=== PATIENT | female | born 1990 | race American Indian/Alaskan Native ===

== ENCOUNTER 2018-08-04 18:47 | Emergency (ER) | payer OTHER ==
--- NOTE | 2018-08-04 19:22 | Emergency Department Report ---
Chief Complaint: Vaginal Bleeding Stated Complaint: POSS MISCARRIAGE Time Seen by Provider: 08/04/18 19:19 - HPI History of Present Illness: pt took two at home test started spotting and now having heavy vaginal bleeding now passing clots 4-5 tampons today suprapubic cramping no fever, no urinary sx LNMP 06/28/18 /P:1/A:0 MSE screening note: Focused history and physical exam performed. Due to findings the following was ordered: UA, labs ED Disposition for MSE Condition: Stable
[2018-08-04 20:19] LABS: Basophils % (Auto) 0.2 % (0.0-1.8); Eosinophils # (Auto) 0.1 K/mm3 (0.0-0.4); Eosinophils % (Auto) 1.2 % (0.0-4.3); Hematocrit 37.7 % (30.3-42.9); Hemoglobin 12.1 gm/dl (10.1-14.3); Lymphocytes # (Auto) 2.1 K/mm3 (1.2-5.4); Lymphocytes % (Auto) 23.7 % (13.4-35.0); Mean Corpuscular HGB Conc 32 % (30-34); Mean Corpuscular Volume 74 fl (79-97); Monocytes # (Auto) 0.7 K/mm3 (0.0-0.8); Monocytes % (Auto) 7.5 % (0.0-7.3); Platelet Count 263 K/mm3 (140-440); Red Blood Count 5.08 M/mm3 (3.65-5.03); Red Cell Distribution Width 16.9 % (13.2-15.2)
[2018-08-04 20:24] LABS: Bacteria,Urine 1+ /HPF (Negative); Bilirubin,Urine NEG (Negative); Blood,Urine LG (Negative); Color,Urine Red (Yellow); Mucus,Urine 3+ /HPF; Urobilinogen,Urine < 2.0 mg/dL (<2.0)
[2018-08-04 20:28] LABS: RBC,Urine > 182.0 /HPF (0.0-6.0)
--- NOTE | 2018-08-05 01:36 | Ultrasound Report ---
PROCEDURE: US OB <= 14 WEEKS FETUS TECHNIQUE: Real-time transabdominal sonography of the uterus, placenta, amniotic fluid, adnexa, and fetus was performed with image documentation. Measurements were obtained to determine age/size. M-mode Doppler was used to document heartbeat. ADDITIONAL GESTATION: None. HISTORY: vag bleeding, low hcg COMPARISONS: None . FINDINGS: No intrauterine is identified. The uterus measures 10.2 x 5.1 x 6.4 cm. Endometrium is thic kened at 10.9 mm. There is no endometrial fluid. Right ovary measures 3 x 2 x 2.8 cm. There are multi ple cystic follicles measuring up to 18 mm. Left ovary measures 2.6 x 1.2 x 2.2 cm. There is a 1 cm c ystic follicle. There is no free pelvic fluid. There is no evidence of ovarian torsion. IMPRESSION: No intrauterine or ectopic is identified. This document is electronically signed by Luigi Lam MD., August 05 2018 01:34:10 AM [facility]
--- NOTE | 2018-08-05 01:37 | Ultrasound Report ---
PROCEDURE: US OB TRANSVAGINAL TECHNIQUE: Real-time transvaginal sonography of the uterus, placenta, amniotic fluid, adnexa, and fe tus was performed with image documentation. Measurements were obtained to determine age/size. M -mode Doppler was used to document heartbeat. ADDITIONAL GESTATION: None. HISTORY: vag bleeding, low hcg COMPARISONS: None . FINDINGS: No intrauterine is identified. The uterus measures 10.2 x 5.1 x 6.4 cm. Endometrium is thic kened at 10.9 mm. There is no endometrial fluid. Right ovary measures 3 x 2 x 2.8 cm. There are multi ple cystic follicles measuring up to 18 mm. Left ovary measures 2.6 x 1.2 x 2.2 cm. There is a 1 cm c ystic follicle. There is no free pelvic fluid. There is no evidence of ovarian torsion. IMPRESSION: No intrauterine or ectopic is identified. This document is electronically signed by Luigi Lam MD., August 05 2018 01:35:04 AM [facility]
--- NOTE | 2018-08-05 02:31 | Emergency Department Report ---
ED Female HPI - General Chief complaint: Vaginal Bleeding Stated complaint: POSS MISCARRIAGE Time Seen by Provider: 08/04/18 19:19 Source: patient Mode of arrival: Ambulatory Limitations: No Limitations - History of Present Illness Initial comments: pt took two at home test started spotting and now having heavy vaginal bleeding now passing clots 4-5 tampons today suprapubic cramping no fever, no urinary sx LNMP 06/28/18/P:1/A:0 Complaint: vaginal bleeding Onset/Timin -: days(s) Severity: moderate Severity scale (0 -10): 5 Quality: cramping Consistency: constant Improves with: none Worsens with: none Are you Now?: Yes Last Menstrual Period: 06/28/18 EDC: 04/04/19 Associated Symptoms: vaginal bleeding - Related Data Sexually active: Yes : 3 Para: 1 A: 1 Previous Rx's Medication Instructions Recorded Last Taken Type cephALEXin [Keflex] 500 mg PO Q12HR 10 Days #20 cap 08/05/18 Unknown Rx traMADol [Ultram] 50 mg PO Q6HR PRN #12 tablet 08/05/18 Unknown Rx Allergies Allergy/AdvReac Type Severity Reaction Status Date / Time No Known Allergies Allergy Unverified 08/04/18 18:49 ED Review of Systems ROS: Stated complaint: POSS MISCARRIAGE Other details as noted in HPI Constitutional: denies: chills, fever Eyes: denies: eye pain, eye discharge, vision change ENT: denies: ear pain, throat pain Respiratory: denies: cough, shortness of breath, wheezing Cardiovascular: denies: chest pain, palpitations Endocrine: no symptoms reported Gastrointestinal: denies: abdominal pain, nausea, diarrhea Genitourinary: denies: urgency, dysuria, discharge Musculoskeletal: denies: back pain, joint swelling, arthralgia Skin: denies: rash, lesions Neurological: denies: headache, weakness, paresthesias Psychiatric: denies: anxiety, depression Hematological/Lymphatic: denies: easy bleeding, easy bruising ED Past Medical Hx - Past Medical History Previous Medical History?: No - Surgical History Past Surgical History?: No - Social History Smoking Status: Never Smoker Substance Use Type: None - Medications Home Medications: Home Medications Medication Instructions Recorded Confirmed Last Taken Type cephALEXin [Keflex] 500 mg PO Q12HR 10 Days #20 cap 08/05/18 Unknown Rx traMADol [Ultram] 50 mg PO Q6HR PRN #12 tablet 08/05/18 Unknown Rx ED Physical Exam - General Limitations: No Limitations General appearance: alert, in no apparent distress - Head Head exam: Present: atraumatic, normocephalic - Eye Eye exam: Present: normal appearance - ENT ENT exam: Present: mucous membranes moist - Neck Neck exam: Present: normal inspection - Respiratory Respiratory exam: Present: normal lung sounds bilaterally. Absent: respiratory distress, wheezes, stridor, chest wall tenderness - Cardiovascular Cardiovascular Exam: Present: regular rate, normal rhythm, normal heart sounds. Absent: systolic murmur, diastolic murmur, rubs, gallop - GI/Abdominal GI/Abdominal exam: Present: soft, normal bowel sounds. Absent: tenderness, rebound, bruit, hernia - Rectal Rectal exam: Present: deferred - Extremities Exam Extremities exam: Present: normal inspection - Back Exam Back exam: Present: normal inspection, full ROM. Absent: tenderness, CVA tenderness (R), CVA tenderness (L), rash noted - Neurological Exam Neurological exam: Present: alert, oriented X3, CN II-XII intact, normal gait - Psychiatric Psychiatric exam: Present: normal affect, normal mood - Skin Skin exam: Present: warm, dry, intact, normal color. Absent: rash ED Course Vital Signs 08/04/18 19:24 Temperature 98.1 F Pulse Rate 85 Respiratory 16 Rate Blood Pressure 111/63 O2 Sat by Pulse 97 Oximetry ED Medical Decision Making - Lab Data Result diagrams: 08/04/18 19:33 Laboratory Results - last 72 hr 08/04/18 08/04/18 08/04/18 19:33 19:33 19:33 WBC 8.7 RBC 5.08 H Hgb 12.1 Hct 37.7 MCV 74 L MCH 24 L MCHC 32 RDW 16.9 H Plt Count 263 Lymph % (Auto) 23.7 Spink % (Auto) 7.5 H Eos % (Auto) 1.2 Baso % (Auto) 0.2 Lymph # 2.1 Spink # 0.7 Eos # 0.1 Baso # 0.0 Seg Neutrophils % 67.4 Seg Neutrophils # 5.9 HCG, Quant 27.47 H Urine Color Urine Turbidity Urine pH Ur Specific [place] Urine Protein Urine Glucose (UA) Urine Ketones Urine Blood Urine Nitrite Urine Bilirubin Urine Urobilinogen Ur Leukocyte Esterase Urine WBC (Auto) Urine RBC (Auto) U Epithel Cells (Auto) Urine Bacteria (Auto) Urine Mucus Blood Type AB POSITIVE 08/04/18 19:42 WBC RBC Hgb Hct MCV MCH MCHC RDW Plt Count Lymph % (Auto) [place] % (Auto) Eos % (Auto) Baso % (Auto) Lymph # Spink # Eos # Baso # Seg Neutrophils % Seg Neutrophils # HCG, Quant Urine Color Red Urine Turbidity Cloudy Urine pH 5.0 Ur Specific [place] 1.032 H Urine Protein 100 mg/dl Urine Glucose (UA) Neg Urine Ketones Tr Urine Blood Lg Urine Nitrite Neg Urine Bilirubin Neg Urine Urobilinogen < 2.0 Ur Leukocyte Esterase Neg Urine WBC (Auto) 33.0 H Urine RBC (Auto) > 182.0 U Epithel Cells (Auto) 4.0 Urine Bacteria (Auto) 1+ Urine Mucus 3+ Blood Type - Radiology Data Radiology results: report reviewed, image reviewed PROCEDURE: US OB TRANSVAGINAL TECHNIQUE: Real-time transvaginal sonography of the uterus, placenta, amniotic fluid, adnexa, and fetus was performed with image documentation. Measurements were obtained to determine age/size. M-mode Doppler was used to document heartbeat. ADDITIONAL GESTATION: None. HISTORY: vag bleeding, low hcg COMPARISONS: None . FINDINGS: No intrauterine is identified. The uterus measures 10.2 x 5.1 x 6.4 cm. Endometrium is thickened at 10.9 mm. There is no endometrial fluid. Right ovary measures 3 x 2 x 2.8 cm. There are multiple cystic follicles measuring up to 18 mm. Left ovary measures 2.6 x 1.2 x 2.2 cm. There is a 1 cm cystic follicle. There is no free pelvic fluid. There is no evidence of ovarian torsion. IMPRESSION: No intrauterine or ectopic is identified. This document is electronically signed by Dimas Wei MD., August 05 2018 01:35:04 AM ET Transcribed By: CO Dictated By: DIMAS WEI MD Electronically Authenticated By: DIMAS WEI MD Signed Date/Time: 08/05/18 0137 DD/ 47 TD/TT: 08/05/18 0049 PROCEDURE: US OB <= 14 WEEKS FETUS TECHNIQUE: Real-time transabdominal sonography of the uterus, placenta, amniotic fluid, adnexa, and fetus was performed with image documentation. Measurements were obtained to determine age/size. M-mode Doppler was used to document heartbeat. ADDITIONAL GESTATION: None. HISTORY: vag bleeding, low hcg COMPARISONS: None . FINDINGS: No intrauterine is identified. The uterus measures 10.2 x 5.1 x 6.4 cm. Endometrium is thickened at 10.9 mm. There is no endometrial fluid. Right ovary measures 3 x 2 x 2.8 cm. There are multiple cystic follicles measuring up to 18 mm. Left ovary measures 2.6 x 1.2 x 2.2 cm. There is a 1 cm cystic follicle. There is no free pelvic fluid. There is no evidence of ovarian torsion. IMPRESSION: No intrauterine or ectopic is identified. 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 Critical care attestation.: If time is entered above; I have spent that time in minutes in the direct care of this critically ill patient, excluding procedure time. ED Disposition Clinical Impression: Miscarriage, Abnormal uterine bleeding (AUB) Disposition: DC-01 TO HOME OR SELFCARE Is pt being admited?: No Does the pt Need Aspirin: No Condition: Stable Instructions: Spontaneous Miscarriage (ED) Prescriptions: cephALEXin [Keflex] 500 mg PO Q12HR 10 Days #20 cap traMADol [Ultram] 50 mg PO Q6HR PRN #12 tablet PRN Reason: Pain Referrals: STEFAN JEAN MD [Staff Physician] - 3-5 Days Forms: Work/School Release Form(ED) Time of Disposition: 02:41
[2018-08-05 02:56] VITALS: BP 123/78
== END 2018-08-05 02:57 | disposition home or self-care (01) ==
LOC: ED 18:47
DX: O03.9 Complete or unspecified spontaneous abortion without complication (principal); Z3A.01 Less than 8 weeks gestation of pregnancy
CPT/HCPCS: 36415; 76801; 76817; 81001; 84702; 85025; 86900; 86901